=== PATIENT | male | born 1950 | race Hispanic/Latino ===

== ENCOUNTER 2022-10-19 10:29 | Emergency (ER) | payer MEDICARE ==
[~2022-10-19] VITALS: Ht 180.3 cm; Wt 79.4 kg
[2022-10-19 10:30] VITALS: BP 140/68
[2022-10-19 11:30] LABS: APPEARANCE,URINE CLEAR (CLEAR); BILIRUBIN,URINE NEGATIVE (NEGATIVE); COLOR,URINE COLORLESS (YELLOW); GLUCOSE, URINE (UA) NEGATIVE (NEGATIVE); KETONES,URINE NEGATIVE (NEGATIVE); LEUKOCYTE ESTERASE ,URINE NEGATIVE Leu/uL (NEGATIVE); NITRATE,URINE NEGATIVE (NEGATIVE); OCCULT BLOOD,URINE LARGE (NEGATIVE); PROTEIN,URINE NEGATIVE (NEGATIVE); UROBILINOGEN,URINE 0.2 mg/dL (0.2-1.0)
[2022-10-19 11:43] LABS: BACTERIA,URINE RARE /HPF (None Seen); SQUAMOUS EPITHELIAL CELL,UR RARE /HPF (0-2); WBC,URINE 0-1 /HPF (0-1)
== END 2022-10-19 12:45 | disposition home or self-care (01) ==
LOC: EDH 10:29
DX: R33.9 Retention of urine, unspecified (principal)
CPT/HCPCS: 51702; 81001

== ENCOUNTER 2022-10-22 12:20 | Emergency (ER) | payer MEDICARE ==
[~2022-10-22] VITALS: Ht 182.9 cm; Wt 78.9 kg
[2022-10-22 13:58] VITALS: BP 125/76
== END 2022-10-22 14:01 | disposition home or self-care (01) ==
LOC: EDH 12:20
DX: T83.098A Other mechanical complication of other urinary catheter, initial encounter (principal); Y83.8 Other surgical procedures as the cause of abnormal reaction of the patient, or of later complication, without mention of misadventure at the time of the procedure; Y82.9 Unspecified medical devices associated with adverse incidents
CPT/HCPCS: 99281

== ENCOUNTER 2022-10-29 17:27 | Emergency (ER) | payer MEDICARE ==
[~2022-10-29] VITALS: Ht 188 cm; Wt 78.0 kg
[2022-10-29 17:54] VITALS: BP 126/74
[2022-10-29 18:36] LABS: APPEARANCE,URINE TURBID (CLEAR); BACTERIA,URINE FEW /HPF (None Seen); BILIRUBIN,URINE NEGATIVE (NEGATIVE); COLOR,URINE YELLOW (YELLOW); GLUCOSE, URINE (UA) NEGATIVE (NEGATIVE); KETONES,URINE NEGATIVE (NEGATIVE); LEUKOCYTE ESTERASE ,URINE 500 Leu/uL (NEGATIVE); MUCUS,URINE RARE LPF (None Seen); NITRATE,URINE NEGATIVE (NEGATIVE); OCCULT BLOOD,URINE LARGE (NEGATIVE); PH,URINE 5.5 (5.0-8.0); PROTEIN,URINE 20 mg/dL (NEGATIVE); RBC,URINE 51-100 /HPF (0-1); UROBILINOGEN,URINE 0.2 mg/dL (0.2-1.0); WBC,URINE >100 /HPF (0-1)
== END 2022-10-29 18:28 | disposition home or self-care (01) ==
LOC: EDH 17:27
DX: R33.9 Retention of urine, unspecified (principal); Z85.46 Personal history of malignant neoplasm of prostate
CPT/HCPCS: 51702; 81001; 87077; 87088; 87186

== ENCOUNTER 2022-12-03 21:26 | Emergency (ER) | payer MEDICARE ==
[~2022-12-03] VITALS: Ht 188 cm; Wt 74.4 kg
[2022-12-03 23:29] LABS: APPEARANCE,URINE TURBID (CLEAR); BILIRUBIN,URINE NEGATIVE (NEGATIVE); COLOR,URINE YELLOW (YELLOW); GLUCOSE, URINE (UA) NEGATIVE (NEGATIVE); KETONES,URINE NEGATIVE (NEGATIVE); LEUKOCYTE ESTERASE ,URINE LARGE Leu/uL (NEGATIVE); NITRATE,URINE POSITIVE (NEGATIVE); OCCULT BLOOD,URINE MODERATE (NEGATIVE); PROTEIN,URINE 100 mg/dL (NEGATIVE); UROBILINOGEN,URINE 0.2 mg/dL (0.2-1.0)
[2022-12-03 23:36] LABS: BASOPHILS % (AUTO) 0.5 % (0.0-5.0); EOSINOPHILS % (AUTO) 1.8 % (0.0-8.0); HEMATOCRIT 40.6 % (42-54); MEAN CORPUSCULAR HEMOGLOBIN 30.7 pg (27.0-33.0); MEAN CORPUSCULAR HGB CONC 33.5 g/dL (32.0-36.0); MEAN CORPUSCULAR VOLUME 91.6 fL (79-99); MONOCYTES % (AUTO) 5.8 % (3.0-13.0); NEUTROPHILS % (AUTO) 80.5 % (40.0-77.0); PLATELET COUNT (AUTO) 199 K/uL (130-400); RED BLOOD CELL COUNT(AUTO) 4.43 MIL/uL (4.50-6.20); RED CELL DISTRIBUTION WIDTH 12.7 % (11.0-15.5); WHITE BLOOD COUNT (AUTO) 10.5 K/uL (4.8-10.8)
[2022-12-03 23:42] LABS: WBC,URINE TNTC /HPF (0-1)
[2022-12-03 23:43] LABS: BACTERIA,URINE Many /HPF (None Seen)
[2022-12-03 23:46] LABS: POTASSIUM 3.8 mmol/L (3.5-5.1)
[2022-12-04] MEDS ORDERED: LEVOFLOXACIN 500 MG TABLET PO SCH (01:00)
[2022-12-04] MEDS ORDERED: LEVO-70 PO (01:14)
[2022-12-04 01:25] VITALS: BP 121/71
== END 2022-12-04 01:26 | disposition home or self-care (01) ==
LOC: EDH 21:26
DX: R33.9 Retention of urine, unspecified (principal); N39.0 Urinary tract infection, site not specified; Z79.899 Other long term (current) drug therapy
CPT/HCPCS: 36415; 51702; 80048; 81001; 85025; 87077; 87088; 87186

== ENCOUNTER 2022-12-08 11:24 | Emergency (ER) | payer MEDICARE ==
[~2022-12-08] VITALS: Ht 188 cm; Wt 81.6 kg
[~2022-12-08 11:24] MED LIST: LEVO-70 PO
[2022-12-08 11:32] VITALS: BP 109/52
== END 2022-12-08 12:44 | disposition home or self-care (01) ==
LOC: EDH 11:24
DX: T83.031A Leakage of indwelling urethral catheter, initial encounter (principal)
CPT/HCPCS: 51702